=== PATIENT | female | born 1995 | race American Indian/Alaskan Native ===

== ENCOUNTER 2017-05-05 14:52 | Emergency (ER) | payer MEDICAID ==
[2017-05-05 15:46] LABS: Alanine Aminotransferase 30 units/L (7-56); Albumin 4.2 g/dL (3.9-5); Albumin/Globulin Ratio 1.1 %; Alkaline Phosphatase 59 units/L (35-129); Anion Gap 20 mmol/L; Blood Urea Nitrogen 7 mg/dL (7-17); Calcium 9.2 mg/dL (8.4-10.2); Carbon Dioxide 20 mmol/L (22-30); Chloride 100.3 mmol/L (98-107); Glucose 121 mg/dL (65-100); Potassium 3.7 mmol/L (3.6-5.0); Sodium 137 mmol/L (137-145); Total Protein 7.9 g/dL (6.3-8.2)
[2017-05-05 15:55] LABS: Basophils % (Auto) 0.6 % (0.0-1.8); Eosinophils % (Auto) 1.4 % (0.0-4.3); Hematocrit 31.9 % (30.3-42.9); Hemoglobin 10.1 gm/dl (10.1-14.3); Mean Corpuscular HGB Conc 32 % (30-34); Mean Corpuscular Volume 74 fl (79-97); Platelet Count 274 K/mm3 (140-440); Red Blood Count 4.34 M/mm3 (3.65-5.03); Red Cell Distribution Width 17.6 % (13.2-15.2); White Blood Count 5.7 K/mm3 (4.5-11.0)
[2017-05-05 15:56] LABS: Mean Corpuscular Hemoglobin 23 pg (28-32)
[2017-05-05 16:11] LABS: Bilirubin,Urine NEG (Negative); Blood,Urine NEG (Negative); Ketones,Urine NEG (Negative); Leukocyte Esterase,Urine TR (Negative); Mucus,Urine 2+ /HPF; Nitrite,Urine NEG (Negative)
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
[2017-05-05 22:10] VITALS: BP 120/78
== END 2017-05-05 22:12 | disposition home or self-care (01) ==
LOC: ED 14:52
DX: O36.4XX0 Maternal care for intrauterine death, not applicable or unspecified (principal); O26.891 Other specified pregnancy related conditions, first trimester; S00.31XA Abrasion of nose, initial encounter; S40.022A Contusion of left upper arm, initial encounter; Z3A.01 Less than 8 weeks gestation of pregnancy; Y09 Assault by unspecified means; Y93.89 Activity, other specified; Y92.89 Other specified places as the place of occurrence of the external cause; Y99.8 Other external cause status
CPT/HCPCS: 36415; 76801; 76817; 80053; 81001; 84702; 85025; 86900; 86901; 99284

== ENCOUNTER 2017-10-08 20:12 | Emergency (ER) | payer MEDICAID ==
[2017-10-08 20:24] VITALS: BP 124/78
== END 2017-10-09 04:27 | disposition left against medical advice (07) ==
LOC: ED 20:12
DX: N89.8 Other specified noninflammatory disorders of vagina (principal); Z53.21 Procedure and treatment not carried out due to patient leaving prior to being seen by health care provider

== ENCOUNTER 2018-01-28 23:53 | Emergency (ER) | payer MEDICAID ==
[2018-01-29 01:50] LABS: Basophils % (Auto) 0.6 % (0.0-1.8); Eosinophils # (Auto) 0.3 K/mm3 (0.0-0.4); Eosinophils % (Auto) 4.5 % (0.0-4.3); Hematocrit 34.2 % (30.3-42.9); Hemoglobin 11.5 gm/dl (10.1-14.3); Lymphocytes # (Auto) 2.4 K/mm3 (1.2-5.4); Lymphocytes % (Auto) 41.1 % (13.4-35.0); Mean Corpuscular HGB Conc 34 % (30-34); Mean Corpuscular Hemoglobin 27 pg (28-32); Mean Corpuscular Volume 80 fl (79-97); Monocytes # (Auto) 0.6 K/mm3 (0.0-0.8); Monocytes % (Auto) 10.3 % (0.0-7.3); Platelet Count 256 K/mm3 (140-440); Red Blood Count 4.27 M/mm3 (3.65-5.03); Red Cell Distribution Width 16.5 % (13.2-15.2)
[2018-01-29 04:28] LABS: Bilirubin,Urine NEG (Negative); Blood,Urine LG (Negative); Color,Urine Yellow (Yellow); Mucus,Urine FEW /HPF; Protein,Urine <15 mg/dL mg/dL (Negative)
--- NOTE | 2018-01-29 05:33 | Ultrasound Report ---
FINAL REPORT PROCEDURE: US OB TRANSVAGINAL TECHNIQUE: Real-time transvaginal sonography of the uterus, placenta, amniotic fluid, adnexa, and fetus was performed with image documentation. Measurements were obtained to determine age/size. M-mode Doppler was used to document heartbeat. CPT 58394 HISTORY: vaginal bleeding/+ COMPARISON: No prior studies are available for comparison. FINDINGS: CRL: 20.7mm, which corresponds to a gestational age of: 8weeks, 5 days. Yolk Sac: Normal. Embryonic Cardiac Activity: There is no cardiac activity Gestational Sac: Normal. Estimated gestational age based on the mean sac diameter of 4 centimeters is 9 weeks and 4 days. Average gestational age is 9 weeks and 1 day. Right Ovary: Normal. Left Ovary: Not seen. IMPRESSION: There is an intrauterine gestation at approximately 9 weeks and 1 day. There is no cardiac activity. demise is suspected. Correlation with serial beta HCG measurements may be helpful.
--- NOTE | 2018-01-29 05:48 | Ultrasound Report ---
FINAL REPORT PROCEDURE: US OB EARLY TECHNIQUE: Real-time transabdominal sonography of the uterus, placenta, amniotic fluid, adnexa, and fetus was performed with image documentation. Measurements were obtained to determine age/size. M-mode Doppler was used to document heartbeat. HISTORY: vaginal bleeding/+ COMPARISON: No prior studies are available for comparison. FINDINGS: CRL: 20.7mm, which corresponds to a gestational age of: 8weeks, 5 days. Yolk Sac: Normal. Embryonic Cardiac Activity: There is no cardiac activity Gestational Sac: Normal. Estimated gestational age based on the mean sac diameter of 4 centimeters is 9 weeks and 4 days. Average gestational age is 9 weeks and 1 day. Right Ovary: Normal. Left Ovary: Not seen. IMPRESSION: There is an intrauterine gestation at approximately 9 weeks and 1 day. There is no cardiac activity. demise is suspected. Correlation with serial beta HCG measurements may be helpful.
--- NOTE | 2018-01-29 10:56 | Emergency Department Report ---
ED Female HPI - General Chief complaint: Vaginal Bleeding Stated complaint: VAGINAL BLEEDING Time Seen by Provider: 01/29/18 10:17 Source: patient Mode of arrival: Ambulatory Limitations: No Limitations - History of Present Illness Initial comments: 23-year-old female presents to the hospital with current with unknown gestation and vaginal bleeding since yesterday. This is her fourth and she has 3 living children without history of miscarriages or abortions. Patient has received care without ultrasound evaluation. She cannot recall her LMP. She States she is about 6 weeks . Patient cannot quantify the amount of vaginal bleeding since she is not wearing a pad states she passed clots and the bleeding seems to be improving. Mild suprapubic abdominal cramping reported. NURSERY RN: Dr. Roach at [place] - Related Data Previous Rx's Medication Instructions Recorded Last Taken Type RX: Cyclobenzaprine HCl [Flexeril] 10 mg PO Q8H PRN #21 tablet 09/20/13 Unknown Rx Cyclobenzaprine HCl [Flexeril 5 MG 5 mg PO TID #20 tab 08/08/15 Unknown Rx TAB] Ibuprofen [Motrin] 800 mg PO Q8HR PRN #20 tablet 08/08/15 Unknown Rx RX: Naproxen [Naprosyn TAB] 500 mg PO BID #30 tablet 11/18/15 Unknown Rx metroNIDAZOLE [Flagyl] 500 mg PO Q12HR #14 tab 11/18/15 Unknown Rx Allergies Allergy/AdvReac Type Severity Reaction Status Date / Time No Known Allergies Allergy Verified 08/08/15 04:06 ED Review of Systems ROS: Stated complaint: VAGINAL BLEEDING Other details as noted in HPI Comment: All other systems reviewed and negative ED Past Medical Hx - Past Medical History Hx Hypertension: No Hx Diabetes: No Hx Deep Vein Thrombosis: No Hx Renal Disease: No Hx Sickle Cell Disease: No Hx Seizures: No Hx Asthma: No Hx HIV: No - Surgical History Additional Surgical History: CS X 3 - Social History Smoking Status: Never Smoker Substance Use Type: None - Medications Home Medications: Home Medications Medication Instructions Recorded Confirmed Last Taken Type RX: Cyclobenzaprine HCl [Flexeril] 10 mg PO Q8H PRN #21 tablet 09/20/13 Unknown Rx Cyclobenzaprine HCl [Flexeril 5 MG 5 mg PO TID #20 tab 08/08/15 Unknown Rx TAB] Ibuprofen [Motrin] 800 mg PO Q8HR PRN #20 tablet 08/08/15 Unknown Rx RX: Naproxen [Naprosyn TAB] 500 mg PO BID #30 tablet 11/18/15 Unknown Rx metroNIDAZOLE [Flagyl] 500 mg PO Q12HR #14 tab 11/18/15 Unknown Rx ED Physical Exam - General Limitations: No Limitations - Other Other exam information: General: No limitations, patient is alert in no acute distress Head exam: Atraumatic, normocephalic Eyes exam: Normal appearance, pupils equal reactive to light, extraocular movements intact ENT: Moist mucous membrane, normal oropharynx Neck exam: Normal inspection, full range of motion, no meningismus nontender Respiratory exam: Clear to auscultation bilateral, no wheezes, rales, crackles Cardiovascular: Normal rate and rhythm, normal heart sounds Abdomen: Soft, nondistended, mild superpubic tenderness, with normal bowel sounds, no rebound, or guarding Extremity: Full range of motion normal inspection no deformity Back: Normal Inspection, full range of motion, no tenderness Neurologic: Alert, oriented x3, cranial nerves intact, no motor or sensory deficit Psychiatric: normal affect, normal mood Skin: Warm, dry, intact ED Course Vital Signs 01/29/18 01/29/18 01:09 07:49 Temperature 98.3 F 97.6 F Pulse Rate 68 68 Respiratory 18 16 Rate Blood Pressure 119/81 99/69 O2 Sat by Pulse 98 100 Oximetry - Consultations Consultation #1: 01/29/18 11:02 no call back from DR Roach therefore case d/w Perri Villanueva with [facility]. Agree with plan for d/ce + f/u 01/29/18 11:05 Dr Roach called back at this time. Informed of findings. Rec follow up in office ED Medical Decision Making - Lab Data Result diagrams: 01/29/18 01:25 - Radiology Data Radiology results: report reviewed US transvag/: IMPRESSION: There is an intrauterine gestation at approximately 9 weeks and 1 day. There is no cardiac activity. demise is suspected. Correlation with serial beta HCG measurements may be helpful. - Medical Decision Making Ultrasound suggesting demise. H&H and vital signs normal Bleeding is decreasing case d/w [facility] and Dr Roach ([place]) f/u appropriate Patient will be discharged with copy of ultrasound report and labs to follow up with her doctor this week for repeat hCG. She does not require RhoGAM based on blood type - Differential Diagnosis miscarriage, threatened miscarriage, ectopic Critical Care Time: No Critical care attestation.: If time is entered above; I have spent that time in minutes in the direct care of this critically ill patient, excluding procedure time. ED Disposition Clinical Impression: Missed with demise before 20 completed weeks of gestation Disposition: - TO HOME OR SELFCARE Is pt being admited?: No Does the pt Need Aspirin: No Condition: Stable Instructions: Spontaneous Miscarriage (ED) Additional Instructions: Take the medication as prescribed. Follow-up with your NURSERY RN doctor this week. Take the copy of the labs and ultrasound reports provided to your follow-up. Return is symptoms worsen as indicated by your discharge instructions. Take Tylenol as needed for pain. Referrals: MD Doc [Other] - 3-5 Days (HUMANE OFFICER) Time of Disposition: 11:20
[2018-01-29 11:44] VITALS: BP 104/90
== END 2018-01-29 11:45 | disposition home or self-care (01) ==
LOC: ED 23:53
DX: O02.1 Missed abortion (principal); Z3A.01 Less than 8 weeks gestation of pregnancy
CPT/HCPCS: 36415; 76801; 76817; 81001; 84702; 85025; 86850; 86900; 86901; 99283